=== PATIENT | female | born 1995 | race African-American/Black ===

== ENCOUNTER 2016-10-06 14:06 | Emergency (ER) | payer BC ==
[~2016-10-06] VITALS: Ht 170.2 cm; Wt 90.7 kg
[2016-10-06 14:25] VITALS: BP 135/84
[2016-10-06] MEDS ORDERED: AMOX500C PO (14:53)
[2016-10-06] MEDS ORDERED: HYDR-971 PO (14:53)
--- NOTE | 2016-10-06 14:53 | PHYS DOC ---
Past Medical History Past Medical History: No Pertinent History Past Surgical History: No Surgical History Alcohol Use: None Drug Use: None Adult General Chief Complaint Chief Complaint: DENTAL PROBLEM HPI HPI Patient is a 21 year old female presents emergency Department today with complaint of right lower dental pain is been ongoing for approximately a month. Patient has a she has large cavity on that side. She denies any recent antibiotics or dental procedures being performed. Patient states that she was concerned as she heard from someone that have been a dental infection can cause problems to her baby while she is breast-feeding. Review of Systems Review of Systems Constitutional: Denies fever or chills [] Eyes: Denies change in visual acuity, redness, or eye pain [] HENT: Denies nasal congestion or sore throat [] Respiratory: Denies cough or shortness of breath [] Cardiovascular: No additional information not addressed in HPI [] GI: Denies abdominal pain, nausea, vomiting, bloody stools or diarrhea [] : Denies dysuria or hematuria [] Musculoskeletal: Denies back pain or joint pain [] Integument: Denies rash or skin lesions [] Neurologic: Denies headache, focal weakness or sensory changes [] Endocrine: Denies polyuria or polydipsia [] Allergies Allergies Allergies Coded Allergies Type Severity Reaction Last Updated Verified No Known Drug Allergies 02/18/16 No Physical Exam Physical Exam Constitutional: Well developed, well nourished, no acute distress, non-toxic appearance. [] HENT: Normocephalic, atraumatic, bilateral external ears normal, oropharynx moist, no oral exudates, nose normal. There is no trismus. Patient's right second mandibular molar is decayed into the pulp. The lateral one third of the tooth is missing. There is no purulent drainage or adjacent fluctuant pocket indicated a gingival abscess. Eyes: PERRLA, EOMI, conjunctiva normal, no discharge. [] Neck: Normal range of motion, no tenderness, supple, no stridor. [] Cardiovascular:Heart rate regular rhythm, no murmur [] Lungs & Thorax: Bilateral breath sounds clear to auscultation [] Abdomen: Bowel sounds normal, soft, no tenderness, no masses, no pulsatile masses. [] Skin: Warm, dry, no erythema, no rash. [] Back: No tenderness, no CVA tenderness. [] Extremities: No tenderness, no cyanosis, no clubbing, ROM intact, no edema. [] Neurologic: Alert and oriented X 3, normal motor function, normal sensory function, no focal deficits noted. [] Psychologic: Affect normal, judgement normal, mood normal. [] Current Patient Data Vital Signs Vital Signs Date Time Temp Pulse Resp B/P Pulse Ox O2 Delivery O2 Flow Rate FiO2 10/06/16 14:25 98.1 86 18 97 Room Air 98.1 EKG EKG [] Radiology/Procedures Radiology/Procedures [] Course & Med Decision Making Course & Med Decision Making Pertinent Labs and Imaging studies reviewed. (See chart for details) [] Dragon Disclaimer Dragon Disclaimer This electronic medical record was generated, in whole or in part, using a voice recognition dictation system. Departure Departure Impression: Primary Impression: Dental caries Disposition: HOME, SELF-CARE Condition: GOOD Referrals: QUEENIE KINGSLEY (PCP) Patient Instructions: Dental Caries-Brief Additional Instructions: 1. Take the medication as prescribed. 2. Review the discharge instructions provided for self-care and reasons to return the emergency department. 3. Use the dental resource sheet provided for assistance in finding a dental clinic or school to address her dental care. Scripts Hydrocodone/Apap 5-325 ([place] 5-325 Tablet)1 Each Tablet1 Tab PO PRN Q6HRS PRN PAIN #10 TAB Prov:SHASTA GRACE 10/06/16 Amoxicillin 500 Mg [id number] Mg PO TID #30 CAP Prov:SHASTA GRACE 10/06/16 SHASTA GRACE Oct 06, 2016 14:53
== END 2016-10-06 14:57 | disposition home or self-care (01) ==
LOC: ER 14:06
DX: K02.9 Dental caries, unspecified (principal)
CPT/HCPCS: 99283

== ENCOUNTER 2016-11-09 16:00 | Emergency (ER) | payer BC ==
[~2016-11-09 16:00] MED LIST: AMOX500C PO; HYDR-971 PO
[2016-11-09 16:10] VITALS: BP 117/69
[2016-11-09] MEDS ORDERED: AMOX875T PO (16:28)
[2016-11-09] MEDS ORDERED: HYDR-971 PO (16:28)
--- NOTE | 2016-11-09 16:28 | PHYS DOC ---
Past Medical History Past Medical History: No Pertinent History Past Surgical History: No Surgical History Alcohol Use: None Drug Use: None Adult General Chief Complaint Chief Complaint: DENTAL PROBLEM HPI HPI Patient is a 21 year old female in no significant medical history who presents today with right lower gum dental pain that began 3 months ago. Patient states she just moved here from [place], she states she is trying to get her medical card that can take care of issues. Review of Systems Review of Systems Constitutional: Denies fever or chills [] Eyes: Denies change in visual acuity, redness, or eye pain [] HENT: Right lower gum dental pain Respiratory: Denies cough or shortness of breath [] Cardiovascular: No additional information not addressed in HPI [] Musculoskeletal: Denies back pain or joint pain [] Integument: Denies rash or skin lesions [] Neurologic: Denies headache, focal weakness or sensory changes [] Endocrine: Denies polyuria or polydipsia [] Allergies Allergies Allergies Coded Allergies Type Severity Reaction Last Updated Verified No Known Drug Allergies 02/18/16 No Physical Exam Physical Exam Constitutional: Well developed, well nourished, no acute distress, non-toxic appearance. [] HENT: Normocephalic, atraumatic, bilateral external ears normal, oropharynx moist, no oral exudates, nose normal. [] Tooth #30 is decayed and broken. Scattered dental caries throughout teeth. No gum redness. No gum swelling. Eyes: PERRLA, EOMI, conjunctiva normal, no discharge. [] Neck: Normal range of motion, no tenderness, supple, no stridor. [] Cardiovascular:Heart rate regular rhythm, no murmur [] Back: No tenderness, no CVA tenderness. [] Extremities: No tenderness, no cyanosis, no clubbing, ROM intact, no edema. [] Neurologic: Alert and oriented X 3, normal motor function, normal sensory function, no focal deficits noted. [] Psychologic: Affect normal, judgement normal, mood normal. [] Current Patient Data Vital Signs Vital Signs Date Time Temp Pulse Resp B/P Pulse Ox O2 Delivery O2 Flow Rate FiO2 11/09/16 16:10 97.9 85 16 98 Room Air 97.9 EKG EKG [] Radiology/Procedures Radiology/Procedures [] Course & Med Decision Making Course & Med Decision Making Pertinent Labs and Imaging studies reviewed. (See chart for details) Patient is in the ED with dental pain. I talked to this patient about the importance of following up with a dentist. She was provided dental list. Discharged with amoxicillin and [place]. Asaf Disclaimer Asaf Disclaimer This electronic medical record was generated, in whole or in part, using a voice recognition dictation system. Departure Departure Impression: Primary Impression: Dental caries Additional Impression: Dentalgia Disposition: HOME, SELF-CARE Condition: STABLE Referrals: NO PCP (PCP) Follow-up with your dentist as soon as possible Patient Instructions: Dental Caries Additional Instructions: You were seen for dental pain. Please follow-up with your own dentist as soon as possible. Scripts Hydrocodone/Apap 5-325 ([place] 5-325 Tablet)1 Each Tablet1-2 Tab PO Q4-6HRS #8 TAB Prov:BEN MARTINEZ APRN 11/09/16 Amoxicillin 875 Mg Tablet1 Tab PO BID #20 TAB Prov:BEN MARTINEZ APRN 11/09/16 Problem Qualifiers BEN MARTINEZ APRN Nov 09, 2016 16:28
== END 2016-11-09 16:33 | disposition home or self-care (01) ==
LOC: ER 16:00
DX: K02.9 Dental caries, unspecified (principal)
CPT/HCPCS: 99283

== ENCOUNTER → 2017-02-21 | Outpatient (CLI) | payer OTHER ==
[~2017-02-21] MED LIST changes: +AMOX875T PO
--- NOTE | 2017-02-21 12:55 | RAD ---
Indication assess size and dates. Obstetrical ultrasound examination was performed. No prior imaging is available. The maternal cervical length measures 4.5 cm which is normal. The placenta is predominantly right lateral. The amount of amniotic fluid appears normal. The biparietal diameter of 4 cm, head circumference of 15 cm, abdominal circumference of 13.5 cm and femoral length of 2.9 cm are compatible with a gestational age of approximately 18 weeks 4 days. Estimated weight is approximately 260 g. A heart rate 137 was documented. There was a 4 chambered heart and a three-vessel cord. The bladder, stomach, and kidneys appeared normal. The visualized spine appeared normal. No gross abnormality was seen associated with the head but structure was not optimally visualized. By sonographic analysis the expected date of confinement is July 21, 2017 IMPRESSION: Single viable intrauterine fetus of approximately 18 weeks 4 days gestation
== END | disposition home or self-care (01) ==
LOC: US 10:31
PROVIDERS: ATTEND Obstetrics & Gynecology
DX: O09.92 Supervision of high risk pregnancy, unspecified, second trimester (principal); O26.842 Uterine size-date discrepancy, second trimester; Z3A.18 18 weeks gestation of pregnancy
CPT/HCPCS: 76805

== ENCOUNTER 2017-04-03 16:06 | Observation (INO) | payer OTHER ==
[2017-04-03] MEDS ORDERED: IV RINGERS,LACTATED 1000ML 1,000 ML IV SCH (16:26)
[2017-04-03 16:45] LABS: BILIRUBIN,URINE NEGATIVE (NEG); GLUCOSE,URINE NEGATIVE (NEG); NITRITE,URINE NEGATIVE (NEG); PH,URINE 6.5; PROTEIN,URINE NEGATIVE (NEG-TRACE); UROBILINOGEN,URINE 0.2 mg/dL (0.2 mg/dL)
== END 2017-04-03 17:55 | disposition home or self-care (01) ==
LOC: 3 SO LND 16:06
PROVIDERS: ADMIT Obstetrics & Gynecology; ATTEND Obstetrics & Gynecology
DX: O26.892 Other specified pregnancy related conditions, second trimester (principal); R10.2 Pelvic and perineal pain; Z3A.24 24 weeks gestation of pregnancy
CPT/HCPCS: 81003; G0378; G0379

== ENCOUNTER 2017-07-11 10:21 | Observation (INO) | payer OTHER | END 2017-07-11 11:18 | disposition home or self-care (01) | LOC: 3 SO LND 10:21 | DX: O36.8130 Decreased fetal movements, third trimester, not applicable or unspecified (principal); Z3A.38 38 weeks gestation of pregnancy | CPT/HCPCS: 59025; G0378; G0379 ==